=== PATIENT | male | born 1965 | race Caucasian/White ===

== ENCOUNTER 2022-11-29 03:02 | Outpatient (CLI) | payer MEDICAID, SELFPAY ==
[2022-11-29 07:34] LABS: Abs Immature Grans 0.02 10^3/uL (0.0-0.06); Absolute Basophil Count 0.03 10^3/uL (0.0-0.2); Absolute Eosinophil Count 0.48 10^3/uL (0.0-0.7); Absolute Lymphocyte Count 1.98 10^3/uL (1.2-3.4); Absolute Monocyte Count 0.88 10^3/uL (0.1-0.8); Absolute Neutrophil Count 4.85 10^3/uL (1.2-6.7); Basophils % 0.4; Eosinophils % 5.8; HCT 44.4 % (40.0-50.0); HGB 14.8 g/dL (13.5-17.5); Immature Grans % 0.2; MCH 30.2 pg (27.0-33.0); MCHC 33.3 % (32.0-36.0); MCV 91 fL (80-95); MPV 10.8 fL (8.0-11.0); Monocytes % 10.7; Neutrophils % 58.9; Platelet Count 206 10^3/uL (130-400); RDW 11.9 % (11.8-14.1); RDW-SD 39.5 fL; WBC 8.24 10^3/uL (4.4-10.8)
[2022-11-29 08:18] LABS: ALT 18 U/L (16-63); AST 14 U/L (15-37); Albumin 4.1 g/dL (3.4-5.0); Alkaline Phosphatase 61 U/L (46-116); Anion Gap 6.2 mmol/L (3-11); BUN 23 mg/dL (7-18); Bilirubin, Total 0.5 mg/dL (0.2-1.0); CO2 32.8 mmol/L (21.0-32.0); CREATININE 0.8 mg/dL (0.70-1.30); Calcium 9.1 mg/dL (8.5-10.1); Calculated LDL 128 mg/dL (<100); Chloride 102 mmol/L (98-107); Cholesterol 210 mg/dL (<200); Estimated GFR 103.22 (mL/min/1.73m2); Glucose 102 mg/dL (74-106); HDL Cholesterol 73 mg/dL (40-60); Potassium 3.9 mmol/L (3.5-5.1); Sodium 141 mmol/L (136-145); Total Protein 7.2 g/dL (6.4-8.2); Triglyceride 45 mg/dL (<150)
[2022-12-02 09:32] LABS: Insulin 7.9 uIU/mL (<29.0)
[2022-12-03 14:54] LABS: 25-Hydroxy D Total 42 ng/mL; 25-Hydroxy D2 <4.0 ng/mL; 25-Hydroxy D3 42 ng/mL
== END 2022-11-29 03:03 | disposition home or self-care (01) ==
LOC: LBO 03:02
PROVIDERS: PCP Acupuncturist; Visit Provider Acupuncturist
DX: Z00.00 Encounter for general adult medical examination without abnormal findings (principal)
CPT/HCPCS: 36415; 80053; 80061; 82306; 83525; 84154; 85025

== ENCOUNTER 2022-12-31 01:26 | Outpatient (CLI) | payer MEDICAID, SELFPAY ==
[2022-12-31 12:54] LABS: FREE T4 0.72 ng/dL (0.76-1.46); TSH 4.34 uIU/mL (0.36-3.74)
[2023-01-01 22:39] LABS: T3,Free 4.9 pg/mL (2.8-5.3)
[2023-01-01 22:55] LABS: T3, Total 137 ng/dL (97-169)
[2023-01-06 13:13] LABS: T3 (Triiodothyronine) Reverse 15 ng/dL (10-24)
== END 2022-12-31 01:27 | disposition home or self-care (01) ==
LOC: LOS 01:27
PROVIDERS: PCP Acupuncturist; Visit Provider Acupuncturist
DX: E03.9 Hypothyroidism, unspecified (principal)
CPT/HCPCS: 36415; 84439; 84443; 84480; 84481; 84482

== ENCOUNTER 2023-11-11 10:47 | Outpatient (CLI) | payer MEDICAID, SELFPAY ==
--- NOTE | 2023-11-11 09:30 | DI.RAD_ITS ---
Exam(s) XR WRIST LT COMP NAVICULAR EXAM: XR WRIST LT COMP NAVICULAR CLINICAL HISTORY: eval L thumb CMC and wrist pain. TECHNIQUE: 2D digital imaging was performed of the left wrist. Four images were obtained. Scaphoid , PA, oblique and lateral views were obtained. COMPARISON: No exams were available for comparison FINDINGS: BONES: No acute fracture is present. No bony destructive lesion is seen. JOINTS: The carpal bones are normally aligned. There is joint space narrowing and osteophyte seen at the 1st CMC joint. The joint spaces are otherwise well maintained. SOFT TISSUE: Normal. IMPRESSION: Mild degenerative changes seen at the 1st CMC joint. DATA REPOSITORY: RADIATION DOSE DELIVERED:
== END 2023-11-11 10:48 | disposition home or self-care (01) ==
LOC: DIORS 10:47
PROVIDERS: PCP Acupuncturist; Referring Provider Acupuncturist; Visit Provider Student in an Organized Health Care Education/Training Program
DX: M18.2 Bilateral post-traumatic osteoarthritis of first carpometacarpal joints (principal)
CPT/HCPCS: 73110

== ENCOUNTER 2024-07-13 08:44 | Outpatient (CLI) | payer MEDICAID, SELFPAY ==
[2024-07-13 09:11] LABS: Absolute Basophil Count 0.03 10^3/uL (0.0-0.2); Absolute Eosinophil Count 0.18 10^3/uL (0.0-0.7); Absolute Lymphocyte Count 1.41 10^3/uL (1.2-3.4); Absolute Monocyte Count 0.43 10^3/uL (0.1-0.8); Absolute Neutrophil Count 2.72 10^3/uL (1.2-6.7); Basophils % 0.6 %; Eosinophils % 3.8 %; HCT 41.5 % (40.0-50.0); HGB 14.4 g/dL (13.5-17.5); Lymphocytes % 29.6 %; MCH 30.5 pg (27.0-33.0); MCHC 34.7 % (32.0-36.0); MCV 88 fL (80-95); Platelet Count 213 10^3/uL (130-400); RBC 4.72 10^6/uL (4.36-5.78); RDW 12.3 % (11.8-14.1); RDW-SD 39.5 fL; WBC 4.77 10^3/uL (4.4-10.8)
[2024-07-13 09:27] LABS: ALT 22 U/L (16-63); AST 12 U/L (15-37); Albumin 3.8 g/dL (3.4-5.0); Alkaline Phosphatase 50 U/L (46-116); BUN 19 mg/dL (7-18); Bilirubin, Total 0.59 mg/dL (0.2-1.0); CREATININE 0.8 mg/dL (0.70-1.30); Calcium 8.8 mg/dL (8.5-10.1); Calculated LDL 125 mg/dL (<100); Chloride 104 mmol/L (98-107); Cholesterol 205 mg/dL (<200); Estimated GFR 102.58 (mL/min/1.73m2); Glucose 98 mg/dL (74-106); HDL Cholesterol 71 mg/dL (40-60); Potassium 3.8 mmol/L (3.5-5.1); Sodium 141 mmol/L (136-145); Total Protein 6.7 g/dL (6.4-8.2); Triglyceride 47 mg/dL (<150)
[2024-07-13 16:48] LABS: FREE T4 0.68 ng/dL (0.76-1.46); TSH 0.47 uIU/Ml (0.36-3.74)
[2024-07-15 08:13] LABS: T3,Free 4.5 pg/mL (2.8-5.3)
[2024-07-15 08:27] LABS: T3, Total 148 ng/dL (97-169)
[2024-07-15 09:00] LABS: Estradiol 26 pg/mL (<40)
[2024-07-18 09:37] LABS: T3 (Triiodothyronine) Reverse 12 ng/dL (10-24)
[2024-07-19 16:43] LABS: Dihydrotestosterone, Serum 90 pg/mL (112-955)
[2024-07-21 13:03] LABS: Testosterone, Free 11.9 ng/dL (3.87-14.7); Testosterone, Total 718 ng/dL (240-950)
[2024-07-23 11:45] LABS: Resin T3 Uptake 29.7 % (22.5-37.0)
[2024-07-23 11:46] LABS: Resin T3 Uptake Ratio 0.99 (0.75-1.23)
== END 2024-07-13 08:45 | disposition home or self-care (01) ==
LOC: LBO 08:44
PROVIDERS: PCP Acupuncturist; Visit Provider Acupuncturist
DX: M18.12 Unilateral primary osteoarthritis of first carpometacarpal joint, left hand (principal)
CPT/HCPCS: 36415; 80053; 80061; 84402; 84403; 84999; 82642; 82670; 83525; 84154; 84439; 84443; 84480; 84481; 84482; 85025

== ENCOUNTER 2024-09-14 00:38 | Outpatient (CLI) | payer MEDICAID, SELFPAY ==
--- NOTE | 2024-09-14 07:15 | DI.CT_ITS ---
Exam(s) CT ABDOMEN PELVIS W EXAM: CT ABDOMEN PELVIS W CLINICAL HISTORY: hernia vs lipoma in LLQ,llq abd mass,r19.04 TECHNIQUE: Imaging Protocol: Axial computed tomography images with coronal and sagittal reformatted images were created and reviewed. CONTRAST MATERIAL: Intravenous: Omnipaque 350 contrast volume:100 mL Oral: Yes COMPARISON: No exams were available for comparison FINDINGS: ABDOMEN: Lung Bases: Normal where visualized. Liver: Normal density. No measurable mass. Portal, Superior Mesenteric, and Splenic Veins: Unremarkable. Gallbladder and Biliary Tract: No radiodense calculus or dilation. Pancreas: Normal density, no abnormal calcifications or inflammatory process. Spleen: Normal. Adrenals: No masses seen. Kidneys: Normal size, contour and axis. No radiodense stones or obstructive uropathy. No masses seen. Abdominal Aorta: Abdominal portion non-dilated. Atherosclerotic calcification is present. Bowel: No obstruction or bowel wall thickening. There is a small hiatal hernia. No evidence of appen dicitis. Peritoneal Cavity: No ascites, collection or mesenteric inflammatory response. No free air. Lymph Nodes: Within normal limits. Bones: Within normal limits for the patient's age. Soft Tissues: There is mild infiltration of the subcutaneous tissues into the lower anterior abdomina l wall. No focal fluid collection is seen to suggest an abscess. There is a question of mild thicke ed of the skin at this area. The findings suggest a cellulitis. There is no evidence of a left in guinal hernia. PELVIS: Bladder: The urinary bladder is incompletely distended but grossly unremarkable. Reproductive Organs: Unremarkable as visualized. Lymph Nodes: Within normal limits. Bones: Within normal limits for the patient's age. IMPRESSION: 1. No acute abdominal or pelvic process. 2. Mild infiltration of the subcutaneous tissues in the lower anterior abdominal wall with mild skin thickening raising the question of cellulitis. No abscess is identified. RADIATION DOSE DELIVERED: 559.63mGy.cm Total DLP DATA REPOSITORY: All CT scans at this facility are submitted to the National Radiology Data Registry (NRDR) Dose Index Registry (DIR) with the [employer] (A[employer]). RADIATION OPTIMIZATION: All CT scans at this facility use at least one of these dose optimization te chniques: automated exposure control; mA and/or kV adjustment per patient size (includes targeted exa ms where dose is matched to clinical indication); or iterative reconstruction.
[2024-09-14] MEDS: Barium Sulfate 2% W/V-Berry Smoothie 450 ML BTL PO (12:02)
[2024-09-14] MEDS: Barium Sulfate 2% W/V-Creamy Vanilla Smoothie 450 ML BTL PO (12:03)
[2024-09-14] MEDS: Omnipaque 350 MG/ML 500 ML BTL-Imaging package 100 ML IJ (14:18)
[2024-09-14] MEDS: Normal Saline - Diluent 50 ML VIAL IJ (14:21)
== END 2024-09-14 00:58 ==
LOC: DI 00:38
PROVIDERS: PCP Acupuncturist; Visit Provider Surgery
DX: R19.04 Left lower quadrant abdominal swelling, mass and lump (principal)
CPT/HCPCS: 74177

== ENCOUNTER 2024-10-05 10:03 | Day surgery (SDC) | payer MEDICAID, SELFPAY ==
--- NOTE | 2024-10-04 17:21 | W.ANESPRE ---
General Info Date of Service Date Performed: 10/05/24 Height: 5 ft 9.5 in Weight: 107.955 kg Body Mass Index (BMI): 34.6 Surgical Procedure: Operation Date: 10/05/24 10:35 Proposed Procedure Side Surgeon p Colonoscopy/Gastroscopy Peggy Llamas DO Meds Allergies and Home Medications Allergies Allergy/AdvReac Type Severity Reaction Status Date / Time morphine AdvReac Intermediate vomiting Verified 10/05/24 10:25 Home Medication ?Medication ?Instructions ?Recorded levothyroxine 25 mcg capsule 25 mcg PO DAILY 11/30/22 liothyronine 5 mcg tablet 12.5 mcg PO DAILY 09/27/23 hydrochlorothiazide 12.5 mg capsule 12.5 mg PO DAILY 09/10/24 lysine 500 mg tablet (L-Lysine) 500 mg PO DAILY 09/10/24 saw palmetto 450 mg capsule 1,350 mg PO DAILY 09/10/24 Current Visit Medications: Current Medications Generic Name Dose Route Start Last Admin Trade Name Freq PRN Reason Stop Dose Admin IV Miscellaneous Supplies 1 each 10/05/24 06:00 Iv Access IV 10/05/24 23:59 DIRECTED DAVY Sodium Chloride 0 ml 10/05/24 06:00 Normal Saline Flush 10 Ml Syr IV 10/05/24 23:59 PRN PRN Sodium Chloride 0 ml 10/05/24 06:00 Normal Saline 10 Ml Vial IJ 10/05/24 23:59 DIRECTED PRN Sterile Water 0 ml 10/05/24 06:00 Water,Injection,Sterile 10 Ml Vial IJ 10/05/24 23:59 DIRECTED PRN PFSH Active Problems Active Problems: Problem Status Onset Code Chronic GERD Acute K21.9 Abdominal mass, left lower quadrant Acute R19.04 Abdominal hernia without obstruction and without gangrene Acute K46.9 Arthritis of carpometacarpal (CMC) joint of left thumb Acute M18.12 Pain of left thumb Acute M79.645 Medical History Medical History Deviated septum Osteoarthritis of hand Hernia Psoriasis Hypothyroidism HTN (hypertension) Prediabetes Sleep apnea Tubular adenoma of colon (~2018) Surgical History Surgical History History of appendectomy History of colonoscopy with polypectomy (~2018) History of Sohan fundoplication (~1999) Tobacco Smoking/Tobacco Use Status: Never Alcohol Alcohol Intake: never Substance Use Substance use: Never Substance use type: does not use Vital Signs and Lab Results Vital Signs Most Recent Vital Signs in EMR: Temp Pulse Resp BP Pulse Ox 36.5 C 68 16 148/90 H 97 10/05/24 10:06 10/05/24 10:06 10/05/24 10:06 10/05/24 10:06 10/05/24 10:06 Lab Results Blood Type / Crossmatch: No Data to Display Complete Blood Count: No Data to Display Complete Metabolic Panel: No Data to Display Liver Function Panel: No Data to Display Coagulation Panel: No Data to Display Cardiac Panel: No Data to Display Arterial Blood Gas: No Data to Display Venous Blood Gas: No Data to Display Pancreas Panel: No Data to Display Thyroid Panel: No Data to Display Infectious Disease: No Data to Display Blood Cultures: No Data to Display Toxicology Panel: No Data to Display Anesthesia Assessment and Plan Anesthesia History Personal History: No History of Anesthesia Complications Family History: No Family History of Anesthesia Complications Exercise Tolerance Exercise Tolerance: Metabolic Equivalents>4 Cardiac & Pulmonary Exam Cardiac Exam: Normal S1/S2 Heart Sounds Pulmonary Exam: Clear Bilateral Breath Sounds Implantable Cardiac Device Does patient have a Pacemaker or an ICD?: No Airway Exam Known Difficult Airway: No Mallampati Class: 3 Mouth Opening: Normal (> 3cm) Thyromental Distance: Greater than 3 cm Neck Range of Motion: Limited ROM Neck Circumference: Normal Teeth Condition: Normal Dentition and Removable Dentures/Plates Upper ASA Classification ASA Score: ASA 2 Emergency Case?: No NPO Status NPO Status: NPO Clears >2 hours, Solids >8 hours Anesthesia Plan Resuscitation Status: Full Code Anesthesia Technique: General Anesthesia Airway Planned: Natural Airway Monitors Used: Standard Monitors Preoperative Comments:: 59 yo male for colo/EGD. Sig PMHx: HTN (HCTZ, well controlled), PreDM, SHIELA, hypothyroid (on replacement), never smoker.
--- NOTE | 2024-10-04 21:27 | COLE_ITS ---
Date of service: 10/05/24 Time of Service: 13:00 Colonoscopy Report Date of procedure: 10/05/24 Pre-op diagnosis general: adenomatous polyps Post-op diagnosis procedure note: other (Adenomatous polyps and diverticula) Surgeon: Peggy Llamas Anesthesia Type: General:No Airway Complications: None Disposition: same day Prep: Miralax/Dulcolax Retraction Time: 14 Procedure Description: After informed consent was obtained, explaining risks of the procedure, including but not limits to: bleeding, infections, complications of anesthesia, perforations (which may require antibiotics and /or surgery and stay in the hospital), and abdominal pain/cramping. The patient was taken to the procedure room and placed in a left decubitous position. Monitors were applied and a time out was done. The patients name, date of , procedure, allergies to medications and metal in their body was reviewed. The patient was then sedated. Once sedated and comfortable a rectal exam was done. External exam was normal. Internal exam revealed a normal sphincter tone and no palpable masses. The prostate no palpable masses. The previously lubricated Olympus scope was then introduced (see RN notes for scope number) and retrofelexed. No internal hemorrhoids were identified. The s cope was then advanced to the cecum without difficulty. The TI and appendiceal orifice were identified. The scope was then slowly retracted over 14 minutes back into the rectum. Polyps: A pedunculated, .75cm polyp was found at 40 cm. This was removed with a cold biting snare. All of the specimen was retrieved. This will be sent to pathology. There is no bleeding noted from the polypectomy site. Diverticula: pt had a few amount of small mouthed diverticula in the sigmoid colon. There were no signs of active bleeding or infection. The mucosa is pink and healthy w/ a normal vascular pattern. The scope was removed, and the patient was woken up and taken back to Same day surgery in stable condition. The patient tolerated the procedure well and there were no immediate complicatio ns. Follow up: The patient should follow up in ~5 years, unless they develop changes in bowel habits or other new gastrointestinal complaints. [place] Bowel Prep Sher[place]ne Bowel Prep Right Colon: 2 Left Colon: 3 Transverse Colon: 3 Total Score: 8
--- NOTE | 2024-10-04 21:28 | ENDO_ITS ---
Date of service: 10/05/24 Time of Service: 13:00 Endoscopy Report DATE OF PROCEDURE: 10/31/24 PRE-OP DIAGNOSIS: GERD & s/p Sohan POST-OP DIAGNOSIS: same SURGEON: Peggy Llamas ANESTHESIA TYPE: General LMA/ETT ESTIMATED BLOOD LOSS: 1 PATHOLOGY: other COMPLICATIONS: None DISPOSITION: same day PROCEDURE DESCRIPTION: Informed consent was obtained from the pt; explaining the benefits and Risks: bleeding, infections, perforations {which could require surgery or antibiotics and prolonged hospital stay}, or ostomy, and complications of anaesthesia, rui aspiration). The patient was take to the procedure room and placed in a supine position. Monitors were applied and a time out was done. The patients name, date of , procedure type, allergies to medications and metal in their body was reviewed. A bite block was placed and the patient was sedated. Once sedated and comfortable an Olympus gastroscope (see RN notes for scope #) was advanced through the oropharynx which was grossly normal, and passed into the esophagus. The proximal and mid-esophagus were normal. The distal esophagus does not show any: dilation/strictures/varices/erosions or ulcers/bleeding noted. He has had a previous Sohan, which does alter the anatomy. The wrap is still intact. The scope was advanced into the stomach and through the pylorus and into the third portion of the duodenum. The duodenum was noted to be normal. Biopsies were done of the duodenal bulb.. The scope was retracted back into the stomach and biopsies were taken of the antrum. There were gastropathy/ ulcers/masses noted. There is maybe some mild gastritis in the distal one third of the stomach. He does have a few scattered polyps in the body of the fundus. 1 of these was biopsies for random evaluation with a cold forcep. the scope was retroflexed. The cardia and fundus were noted to be normal. There is no herniation of the wrap. The scope was retracted back into the esophagus and biopsies were done of the GE junction (in all 4 quadrants) and distal esophagus (2cm above the GE junction) to rule out Glasgow's. All specimens are retrieved and no bleeding was noted. The scope was removed and the patient was woken up and taken back to [facility] in stable condition.
--- NOTE | 2024-10-04 21:29 | PDOC.DSDIS_ITS ---
Date of service: 10/31/24 Discharge Plan Disposition Patient Disposition: Home Condition: Good Discharge Details Reason For Visit: egd & colo Attending Provider: Peggy Llamas Primary Care Provider: Simon Zazueta Home Meds and New Rx's Prescriptions: Continued lysine [L-Lysine] 500 mg tablet 500 mg PO DAILY saw palmetto 450 mg capsule 1,350 mg PO DAILY Rx Instructions: give with food (meal/snack) levothyroxine 25 mcg capsule 25 mcg PO DAILY Patient Comments: Pt reports takes 2.5 tabs in am and 2.5 tabs at 3:30 liothyronine 5 mcg tablet 12.5 mcg PO DAILY Patient Comments: Pt reports takes 2.5 tabs in am and 2.5 tabs at 3:30. hydrochlorothiazide 12.5 mg capsule 12.5 mg PO DAILY Discontinued polyethylene glycol 3350 17 gram/dose powder 238 g PO ONCE Qty: 238 0RF Rx Instructions: take per colonoscopy instructions bisacodyl [Dulcolax (bisacodyl)] 5 mg tablet,delayed release (DR/EC) 5 mg PO ONCE Qty: 4 0RF Rx Instructions: take per colonoscopy instructions Discharge Instructions Additional Instructions: [facility] Colonoscopy Post- Op Instructions Instructions for Everyone who is given Anesthesia: For your safety, please do the following for the next twenty-four (24) hours: *Do Not operate a motor vehicle (car, truck, motorcycle, etc.) *Do Not drink alcoholic beverages or use any recreational drugs for the first 24 hours or while taking pain medications. The medications in your body may have a reaction that can be dangerous. *Do Not make any important decisions or sign any important papers. Findings: wrap is intact mild gastritis colon polyp diverticula- minor lipoma Follow up: clinic [id number] 1. No lifting over 20 pounds or strenuous activity for the first 24 hours after your procedure. After 24 hours there are no restrictions on your activity but you may feel fatigued for a few days. 2. After you arrive home you may have a light meal and return to your normal diet as you can tolerate it without feeling sick to your stomach. 3. You may have a bloated, gaseous feeling in your belly (abdomen) after a colonoscopy. Passing gas and belching will help. Walking or lying down on your left side with your knees flexed may relieve the discomfort. Call the office at [phone] (Office) or [phone] (Hospital) right away if you notice any of the following: a.Vomiting of blood or ?coffee ground stools?. b.Rectal bleeding 1Tbsp, blood clots or continuous bleeding. c.Severe belly (abdominal) pain. d.A hard distended belly (abdomen) and an inability to pass gas. 4. Please don?t expect to have a normal BM (bowel movement) for 2-3 days after your procedure. 5. If there are questions regarding the findings of your procedure, please contact your doctor 6. If you are unable to contact your doctor with a problem, contact the hospital at [phone]. 7. Continue all your regular medications unless directed otherwise. I understand the above instructions and have no questions. Signature of Patient or Adult Escort Name of Responsible Adult Escort Signature of Nurse Date/Time Stand Alone Forms: Colonoscopy Post Instructions, Paulette Akins ([facility]) Activity:: seeabove Diet:: seeabove Discharge Orders Discharge Orders: Discharge Order (Routine); Ordered 10/05/24 Ordered By: Peggy Llamas DS: Diagnosis Discharge Diagnosis (1) Chronic GERD: Status: Acute (2) Abdominal mass, left lower quadrant: Status: Acute (3) Tubular adenoma of colon: Asessment and Plan: The patient is seen and examined after their colonoscopy.? The patient has been able to pass gas.? They are not having abdominal pain.? They have been able to tolerate liquids and a snack.? They do not have any nausea or vomiting.? They are not having any chest pain or shortness of breath.??? They are not having any rectal bleeding. Their vital signs have been stable-see nursing notes. We discussed findings during their colonoscopy, and any biopsies that were done/polyps that were removed. The patient will be sent a letter with any biopsy results, and when to repeat the colonoscopy.-see discharge instructions. Patient was given explicit instructions to follow-up regarding colonoscopy-refer to discharge instructions.? We reviewed resumption of medications. Patient verbalized understanding and discharged in stable and satisfactory condition- See nursing notes. (4) Diverticula of colon: Status: Acute
[2024-10-05 10:06] VITALS: BP 148/90; PULSE 68; RESP 16; TEMP 36.5; O2SAT 97
[2024-10-05 10:27] VITALS: BMI 34.6
[2024-10-05] MEDS: Normal Saline Flush 10 ML SYR IV (10:38)
--- NOTE | 2024-10-05 11:15 | BOWEL_PTH ---
PATIENT: Shadi Luke LOC: [facility] U#:[id number] AGE/SX: 59/M ROOM: RE10/05/[address]: Peggy Llamas : 1965 BED: DIS: 10/05/2024 SPEC #: [id number] RECD: 10/05/24 13:20 STATUS: REUBEN RE #: [id number] HEATHER: 10/05/24 11:[address]: Peggy Llamas DEPT: Surgical Specimen RECD BY: Harini Morrison ENTERED: 10/05/24 13:21 SP TYPE: Bowel OTHR DR: Ricardo Zazueta Tissues: 1 - BIOPSY BOWEL 2 - STOMACH BIOPSY 3 - STOMACH BIOPSY 4 - ESOPHAGUS BIOPSY 5 - ESOPHAGUS BIOPSY 6 - STOMACH BIOPSY 7 - BIOPSY BOWEL Procedures: GROSS AND MICRO LEVEL 4 Comments: [id number]
[2024-10-05 11:52] VITALS: BP 125/80; PULSE 59; RESP 14; TEMP 36; O2SAT 96
--- NOTE | 2024-10-05 12:06 | W.ANESPOSTOP ---
Postoperative Evaluation Date, Time and Location Date Performed: 10/05/24 Time Performed: 12:06 Patient Location: Day Surgery Unit Vital Signs Most Recent Imported Vital Signs: Most Recent Vital Signs Temp Pulse Resp BP Pulse Ox 36 C L 59 L 14 125/80 96 10/05/24 11:52 10/05/24 11:52 10/05/24 11:52 10/05/24 11:52 10/05/24 11:52 Pain Score Most Recent Pain Score: Most Recent Pain Score Pain Level 0 10/05/24 11:52 Assessment Mental Status: Awake (Alert & Oriented to Patient Baseline) Airway and Respiratory Function: Patent airway with normal (patient baseline) respiratory exam Cardiovascular Function: Hemodynamically Stable Hydration Status: Adequately Hydrated Nausea & Vomiting: No Nausea or Vomiting Pain: Pt. Denies Any Pain Peripheral Nerve Block: Patient did not receive a nerve block
--- NOTE | 2024-10-05 12:20 | NUR.NOTE ---
Pt's ride ([employer]) called x3 (1 call, 2 voicemails left) with notification that he should come to [facility] post-op to discuss discharge instructions and transport pt home. Pt was made aware pre-op that ride should be/remain on campus, pt reported that pt could not do that as he works from home but would come when called. -BR
[2024-10-05 12:25] VITALS: BP 130/81; PULSE 56; RESP 15; TEMP 36.3; O2SAT 98
== END 2024-10-05 12:55 | disposition home or self-care (01) ==
LOC: SUR 10:05
PROVIDERS: PCP Acupuncturist; Visit Provider Surgery
PROC: (CPT 45385; principal; 2024-10-05 10:30)
DX: K21.9 Gastro-esophageal reflux disease without esophagitis (principal); K31.7 Polyp of stomach and duodenum; K57.30 Diverticulosis of large intestine without perforation or abscess without bleeding; Z12.11 Encounter for screening for malignant neoplasm of colon; Z98.890 Other specified postprocedural states; K63.5 Polyp of colon; K31.9 Disease of stomach and duodenum, unspecified; K22.89 Other specified disease of esophagus
CPT/HCPCS: 45385; 43239; 88305; J2405; J2704

== ENCOUNTER 2024-11-06 06:29 | Day surgery (SDC) | payer MEDICAID, SELFPAY ==
--- NOTE | 2024-11-05 12:49 | W.PM.HP.N ---
Date of service: 11/06/24 Time of Service: 07:32 Assessment and Plan Assessment and plan (1) Chronic GERD: Status: Acute (2) Diverticula of colon: Status: Acute (3) Lipoma of abdominal wall: Status: Acute (4) HTN (hypertension): (5) Prediabetes: (6) Hypothyroidism: (7) Deviated septum: (8) Sleep apnea: History of Present Illness Narrative: Patient is here today for lipoma removal?? ? They are not experiencing any fever or chills.? They deny any productive cough or upper respiratory tract infection signs or symptoms.? They are not having abdominal pain, or nausea and vomiting.? They have not had any changes in medications, past medical history or past surgical history since previously being seen in the office. They have not had any accidents or have been in the ER since the clinic pre-operative evaluation. ??I reviewed the procedure with the patient today, including risks and benefits of the procedure, and what they could expect at home for recovery.? All questions are answered to the patient?s satisfaction today, and they are stable to proceed with the proposed procedure. site is marked Pt has a 6x8cm in LLQ and would liek removed. Informed consent was obtained prior to beginning the procedure. The area was marked and doubled checked/ID?ed with the pt. The risks of lesion removal include but are not limited to: bleeding, infection, scarring, reoccurrence, and the need for removal of more tissue, and complications of anesthesia. Review of Systems All systems reviewed & are unremarkable except as noted in HPI and below PFSH All Active Problems Lipoma of abdominal wall (Acute) Diverticula of colon (Acute) Chronic GERD (Acute) Arthritis of carpometacarpal (CMC) joint of left thumb (Acute) POCUS INJECTION 11/11/23 Pain of left thumb (Acute) Medical History Deviated septum Osteoarthritis of hand Hernia Psoriasis Hypothyroidism HTN (hypertension) Prediabetes Sleep apnea Tubular adenoma of colon (~2019) Surgical History History of esophagogastroduodenoscopy (~09/2024) History of appendectomy History of colonoscopy with polypectomy (~2023) History of Sohan fundoplication (~1999) Social History Smoking/Tobacco Use Status: Never Smoking risk assessment performed?: Yes Alcohol Intake: never Drug use: Never Substance use type: does not use Housing: house Do you feel safe at home: Yes Do you feel safe in your relationship?: Yes Meds Allergies and Home Medications Allergies Allergy/AdvReac Type Severity Reaction Status Date / Time morphine AdvReac Intermediate vomiting Verified 11/06/24 06:34 Home Medications ?Medication ?Instructions ?Recorded ?Confirmed ?Type levothyroxine 25 mcg capsule 25 mcg PO DAILY 11/30/22 11/06/24 History liothyronine 5 mcg tablet 12.5 mcg PO DAILY 09/27/23 11/06/24 History hydrochlorothiazide 12.5 mg capsule 12.5 mg PO DAILY 09/10/24 11/06/24 History lysine 500 mg tablet (L-Lysine) 500 mg PO DAILY 09/10/24 11/06/24 History saw palmetto 450 mg capsule 1,350 mg PO DAILY 09/10/24 11/05/24 History Exam Narrative Exam Narrative: PHYSICAL EXAM GENERAL APPEARANCE: Alert, healthy appearance, oriented, x 3,? in no acute distress HYDRATION: Well hydrated HEAD, EYES, EARS, NECK, THROAT: Head is normocephalic, pupils equal, round, reactive to light and accommodation, ocular movement intact, sclera clear and no jaundice. ?Dentition intact. LUNGS: normal respiration/normal chest excursion. ?Clear to auscultation bilaterally. ?No wheeze. ?HEART: Regular rate and rhythm. no murmurs ABDOMEN: soft and non-tender to palpation.? Normal bowel sounds.? Time Spent Time spent with Patient: <40 minutes Time was spent: preparing to see the patient(eg.review tests), obtaining and/or reviewing separately otained hiistory, ordering medications,tests, procedures, referring, communicating with other health home health aide caregiver, indepentently interpreting results, counseling the patient, care coordination and other
--- NOTE | 2024-11-05 19:23 | W.PM.DSUDISC ---
Date of service: 11/06/24 Discharge Plan Disposition Patient Disposition: Home Condition: Good Discharge Details Reason For Visit: lipoma removal Attending Provider: Peggy Llamas Primary Care Provider: Simon Zazueta Home Meds and New Rx's Prescriptions: No Action lysine [L-Lysine] 500 mg tablet 500 mg PO DAILY saw palmetto 450 mg capsule 1,350 mg PO DAILY Rx Instructions: give with food (meal/snack) levothyroxine 25 mcg capsule 25 mcg PO DAILY Patient Comments: Pt reports takes 2.5 tabs in am and 2.5 tabs at 3:30 liothyronine 5 mcg tablet 12.5 mcg PO DAILY Patient Comments: Pt reports takes 2.5 tabs in am and 2.5 tabs at 3:30. hydrochlorothiazide 12.5 mg capsule 12.5 mg PO DAILY Discharge Instructions Additional Instructions: Wound Care Instruction Pain Control Use ice!? Ice keeps the swelling down and swelling is what causes pain.? Never apply ice directly to the skin.? Wrap it in a towel or cloth.? Apply ice 20 minutes on and 20 minutes off for pain control.? Use as needed. Take Tylenol 500 mg by mouth with food every 4 hours as needed for pain. Or ibuprofen 600 mg by mouth with food every 6 hours as needed for pain.? Do not take Tylenol if you have a history of heavy drinking, hepatitis C or liver problems.? Do not take ibuprofen if you have a history of stomach ulcers/problems, bleeding problem or kidney issues. ? Always wash your hands before touching your incision. ? Keep the incision clean, dry, and out of water, keep the incision out of water. ? Do not to pick at the scabs. Scabs help protect the wound. ? You can take a shower in 24 hours and wash the incision with soap and water. Pat dry/don?t scrub. It?s OK to wash around the incision. But don?t spray water directly on it. ? Pat stitches dry if they get wet. Don't rub. ? Check the incision site daily for pain, redness, drainage, swelling, or separation of the incision edges. ? Make sure any clothing that touches the incision is loose-fitting. This will prevent rubbing. As your incision heals, the skin may appear pink or red. It may also feel slightly bumpy or raised. This is called a healing ridge. Over time, the color should fade and the raised skin will become less noticeable. When to seek medical care Call your healthcare provider right away if you have any of these: ? More pain, redness, swelling, bleeding, or foul-smelling discharge around the incision area ? Fever of 101?F (38.3?C) or higher, or as directed by your child's healthcare provider ? Shaking chills ? Vomiting or nausea that doesn?t go away ? Numbness, coldness, or tingling around the incision area, or changes in skin color ? Opening of the sutures or wound -Stitches or jason that come apart or fall out or surgical tape falls off before 7 days, or as directed by your healthcare provider ?[facility]: [phone] F/u for sutures removal 11/16 at 9am at [facility] Forms: Anesthesia Discharge InstNii, Paulette Akins (DSU) Activity:: see above Remove Dressings/Wound Care:: 24 hours Shower/Bathe:: 24 hours Diet:: As Tolerated Discharge Orders Discharge Orders: Discharge Order (Routine); Ordered 11/05/24 Ordered By: Peggy Llamas DS: Diagnosis Discharge Diagnosis (1) Chronic GERD: Status: Acute (2) Diverticula of colon: Status: Acute (3) Lipoma of abdominal wall: Status: Acute Asessment and Plan: The patient is doing well post-op from their [] surgery.? They are having no nausea or vomiting. They are tolerating liquids and a snack. The pt is not having any chest pain or SOB.? Their pain is adequately controlled. They have been able to urinate.? ?HEENT:? no eye pain/drainage/redness/swelling. Mild sore throat ?Cardio- NSR, no chest pain, BP stable- see VS record ?Pulm: no sob or productive cough. No hemoptysis ?Incision- dressing is c/d/i w/ no excessive bleeding or drainage ?I discussed with the patient the findings at the time of surgery and the patient?s progress. ?We reviewed expectations at home; what the patient could expect for recovery time, and in the post-operative period.? We discussed the importance of walking to avoid blood clots and pneumonia.? We discussed and reviewed the patient's post-operative wound care and dressing needs.?? We reviewed their step-ramey pain management plan, Rx called to the pharmacy of their choice.? We reviewed activity and limitations-see discharge instructions. We reviewed warning signs, and when to seek medical attention- see d/c instructions.?? Patient was given a postoperative follow-up appointment. Patient verbalized understanding of their postoperative instructions, how do to take care of themselves and their incision, and the pain management plan. Please see discharge instructions.? (4) HTN (hypertension): (5) Prediabetes: (6) Hypothyroidism: (7) Deviated septum: (8) Sleep apnea:
[2024-11-06 06:42] VITALS: BP 139/87; PULSE 59; RESP 16; TEMP 36.5; O2SAT 99
[2024-11-06] MEDS: Acetaminophen 500 MG TAB 1000 MG PO (06:47)
[2024-11-06] MEDS: Gabapentin 300 MG CAP 600 MG PO (06:47)
[2024-11-06] MEDS: Normal Saline Flush 10 ML SYR IV (07:07)
--- NOTE | 2024-11-06 07:09 | W.ANESPRE ---
General Info Date of Service Date Performed: 11/06/24 Height: 5 ft 9.5 in Weight: 111.6 kg Body Mass Index (BMI): 35.8 Surgical Procedure: Operation Date: 11/06/24 07:40 Proposed Procedure Side Surgeon p Incision & Removal Abdominal Lipoma, LLQ Left Peggy Llamas, DO Actual Procedure Side Surgeon p Incision & Removal Abdominal Lipoma, LLQ Left Peggy Vo Pabloiber, DO Pre-Op Diagnosis Post-Op Diagnosis Lipoma of abdominal wall Meds Allergies and Home Medications Allergies Allergy/AdvReac Type Severity Reaction Status Date / Time morphine AdvReac Intermediate vomiting Verified 11/06/24 06:34 Home Medication ?Medication ?Instructions ?Recorded levothyroxine 25 mcg capsule 25 mcg PO DAILY 11/30/22 liothyronine 5 mcg tablet 12.5 mcg PO DAILY 09/27/23 hydrochlorothiazide 12.5 mg capsule 12.5 mg PO DAILY 09/10/24 lysine 500 mg tablet (L-Lysine) 500 mg PO DAILY 09/10/24 saw palmetto 450 mg capsule 1,350 mg PO DAILY 09/10/24 Current Visit Medications: Current Medications Generic Name Dose Route Start Last Admin Trade Name Freq PRN Reason Stop Dose Admin Acetaminophen 1,000 mg 11/06/24 06:00 11/06/24 06:47 Acetaminophen 500 Mg Tab PO 11/06/24 23:59 1,000 mg PREOP DAVY Administration Gabapentin 600 mg 11/06/24 06:00 11/06/24 06:47 Gabapentin 300 Mg Cap PO 11/06/24 23:59 600 mg PREOP DAVY Administration Ondansetron HCl 4 mg/ Sodium 52 mls @ 200 mls/hr 11/05/24 12:48 Chloride IVPB 12/05/24 12:47 Q6H PRN PRN IV Miscellaneous Supplies 1 each 11/06/24 06:00 Iv Access IV 11/06/24 23:59 DIRECTED DAVY Morphine Sulfate 2 mg 11/05/24 12:48 Morphine 4 Mg/Ml Syr IVP 12/05/24 12:47 Q1H PRN PRN Sodium Chloride 0 ml 11/06/24 06:00 11/06/24 07:07 Normal Saline Flush 10 Ml Syr IV 11/06/24 23:59 10 ml PRN PRN Administration Sodium Chloride 0 ml 11/06/24 06:00 Normal Saline 10 Ml Vial IJ 11/06/24 23:59 DIRECTED PRN Sterile Water 0 ml 11/06/24 06:00 Water,Injection,Sterile 10 Ml Vial IJ 11/06/24 23:59 DIRECTED PRN Tramadol HCl 50 mg 11/05/24 12:48 Tramadol 50 Mg Tab PO 12/05/24 12:47 Q6H PRN PRN Pain PFSH Active Problems Active Problems: Problem Status Onset Code Lipoma of abdominal wall Acute D17.1 Diverticula of colon Acute K57.30 Chronic GERD Acute K21.9 Arthritis of carpometacarpal (CMC) joint of left thumb Acute M18.12 Pain of left thumb Acute M79.645 Medical History Medical History Deviated septum Osteoarthritis of hand Hernia Psoriasis Hypothyroidism HTN (hypertension) Prediabetes Sleep apnea Tubular adenoma of colon (~2018) Surgical History Surgical History History of esophagogastroduodenoscopy (~09/2024) History of appendectomy History of colonoscopy with polypectomy (~2023) History of Sohan fundoplication (~1999) Tobacco Smoking/Tobacco Use Status: Never Alcohol Alcohol Intake: never Substance Use Substance use: Never Substance use type: does not use Vital Signs and Lab Results Vital Signs Most Recent Vital Signs in EMR: Most Recent Vital Signs Temp Pulse Resp BP Pulse Ox 36.5 C 59 L 16 139/87 99 11/06/24 06:42 11/06/24 06:42 11/06/24 06:42 11/06/24 06:42 11/06/24 06:42 Lab Results Blood Type / Crossmatch: No Data to Display Complete Blood Count: No Data to Display Complete Metabolic Panel: No Data to Display Liver Function Panel: No Data to Display Coagulation Panel: No Data to Display Cardiac Panel: No Data to Display Arterial Blood Gas: No Data to Display Venous Blood Gas: No Data to Display Pancreas Panel: No Data to Display Thyroid Panel: No Data to Display Infectious Disease: No Data to Display Blood Cultures: No Data to Display Toxicology Panel: No Data to Display Anesthesia Assessment and Plan Anesthesia History Personal History: No History of Anesthesia Complications Family History: No Family History of Anesthesia Complications Exercise Tolerance Exercise Tolerance: Metabolic Equivalents>4 Pertinent Negatives Pertinent Negatives: No Symptoms of GERD Cardiac & Pulmonary Exam Cardiac Exam: Normal S1/S2 Heart Sounds Pulmonary Exam: Clear Bilateral Breath Sounds Implantable Cardiac Device Does patient have a Pacemaker or an ICD?: No Airway Exam Known Difficult Airway: No Mallampati Class: 1 Mouth Opening: Normal (> 3cm) Thyromental Distance: Greater than 3 cm Neck Range of Motion: Limited ROM Neck Circumference: Normal Teeth Condition: Normal Dentition ASA Classification ASA Score: ASA 2 Emergency Case?: No NPO Status NPO Status: NPO Clears >2 hours, Solids >8 hours Anesthesia Plan Resuscitation Status: Full Code Anesthesia Technique: General Anesthesia Airway Planned: Natural Airway Monitors Used: Standard Monitors
[2024-11-06 07:11] VITALS: BMI 35.8
[2024-11-06] MEDS: Lactated Ringers 1,000 ML 80 ML IV (07:21)
[2024-11-06] MEDS: Lidocaine 1% Pres-Free 30 ML VIAL (07:48)
[2024-11-06] MEDS: Bupivacaine LIPOSOME/PF 133 MG/10 ML VIAL IJ (07:48)
[2024-11-06 08:17] VITALS: BP 107/66; PULSE 58; RESP 16; TEMP 36.3; O2SAT 93
--- NOTE | 2024-11-06 08:30 | ROE_ITS ---
Operative Note Operative Note PRE-OP DIAGNOSIS: lipoma POST-OP DIAGNOSIS: same SURGEON: Peggy Llamas ICU RN: Josefa Pinzon ANESTHESIA TYPE: Local By Surgeon and MAC Refer to Anesthesia Record ESTIMATED BLOOD LOSS: 3 PATHOLOGY: none sent COMPLICATIONS: None Patient was transported to: PACU Patient's condition: stable Procedure Description: ASSESSMENT: The lesion is 8x4_Cm in size. Differential diagnosis includes:_lipoma Location: LLQ of abdomen Procedural Sedation 30cc marciane and 10cc experel Technique excision of lipma Patient appears well. Vitals are normal. The patient has no allergies to lidocaine or suture material. The patient not on any blood thinners. The pt has no history of keloids or problems with healing in the past. Skin: see HPI Informed consent was obtained prior to beginning the procedure. The area was marked and doubled checked/ID?ed with the pt. PAUSE for the CAUSE completed. The risks of lesion removal include but are not limited to: bleeding, infection, scarring, reoccurrence, and the need for removal of more tissue, and complications of anesthesia. After informed consent was obtained, using Chloroprep for cleansing and 1% Buffered Lidocaine for anesthetic; using sterile technique, PROCEDURE:_excision of lipma was performed. The lesion is 48cm in size. The incision was 4_Cm long. The incision is closed w/ interrupted sutures of 3-0 prolene dressing is applied, and wound care instructions provided. The procedure was well tolerated without complications. Plan: The patient will follow up in 10 days for suture removal and review of pathology. If there is any bleeding/redness/drainage/swelling/pain or tenderness- call the clinic. Patient was given instructions in wound care, activity, warning signs, appointment for follow up. If the patient has any questions or concerns, should call our clinic or go to ER/urgent care after hours. Patient expressed understanding in directions for care and was given a written copy of instructions. Rx=see [employer], if appropriate Pt tolerated the procedure well without complications Patient was given instruction in activity restrictions, wound care and dressing changes. Medication usage, diet, warning signs to look for (and what to do if they occur), and an appointment for follow-up. Date of Procedure: 11/06/24
[2024-11-06 08:45] VITALS: BP 105/71; PULSE 50; RESP 16; TEMP 36.2; O2SAT 99
--- NOTE | 2024-11-06 08:47 | W.ANESPOSTOP ---
Postoperative Evaluation Date, Time and Location Date Performed: 11/06/24 Time Performed: 08:47 Patient Location: Day Surgery Unit Vital Signs Most Recent Imported Vital Signs: Most Recent Vital Signs Temp Pulse Resp BP Pulse Ox 36.3 C L 58 L 16 107/66 93 11/06/24 08:17 11/06/24 08:17 11/06/24 08:17 11/06/24 08:17 11/06/24 08:17 Pain Score Most Recent Pain Score: Most Recent Pain Score Pain Level 0 11/06/24 08:17 Assessment Mental Status: Awake (Alert & Oriented to Patient Baseline) Airway and Respiratory Function: Patent airway with normal (patient baseline) respiratory exam Cardiovascular Function: Hemodynamically Stable Hydration Status: Adequately Hydrated Nausea & Vomiting: No Nausea or Vomiting Pain: Pt. Denies Any Pain Peripheral Nerve Block: Patient did not receive a nerve block
== END 2024-11-06 09:40 | disposition home or self-care (01) ==
LOC: SUR 06:29
PROVIDERS: PCP Acupuncturist; Visit Provider Surgery
PROC: (CPT 11406; principal; 2024-11-06 07:30)
DX: D17.1 Benign lipomatous neoplasm of skin and subcutaneous tissue of trunk; K21.9 Gastro-esophageal reflux disease without esophagitis; I10 Essential (primary) hypertension; E03.9 Hypothyroidism, unspecified; R73.03 Prediabetes
CPT/HCPCS: 11406; J0666; J2250; J2405; J2704; J3010

== ENCOUNTER 2025-04-08 13:00 | Outpatient (CLI) | payer MEDICAID, SELFPAY ==
[2025-04-08 11:21] LABS: Abs Immature Grans 0.01 10^3/uL (0.0-0.06); Absolute Basophil Count 0.02 10^3/uL (0.0-0.2); Absolute Eosinophil Count 0.14 10^3/uL (0.0-0.7); Absolute Monocyte Count 0.44 10^3/uL (0.1-0.8); Absolute Neutrophil Count 3.06 10^3/uL (1.2-6.7); Basophils % 0.4 %; Eosinophils % 2.8 %; HCT 42.9 % (40.0-50.0); HGB 14.6 g/dL (13.5-17.5); Immature Grans % 0.2 %; Lymphocytes % 26.2 %; MCV 88 fL (80-95); MPV 11.1 fL (8.0-11.0); Monocytes % 8.9 %; Neutrophils % 61.5 %; Platelet Count 214 10^3/uL (130-400); RBC 4.86 10^6/uL (4.36-5.78); RDW 11.9 % (11.8-14.1); RDW-SD 38.3 fL; WBC 4.97 10^3/uL (4.4-10.8)
[2025-04-08 11:44] LABS: ALT 17 U/L (16-63); AST 15 U/L (15-37); Albumin 4.1 g/dL (3.4-5.0); Alkaline Phosphatase 63 U/L (46-116); Anion Gap 6.4 mmol/L (3-11); BUN 23 mg/dL (7-18); Bilirubin, Direct 0.1 mg/dL (0.0-0.2); Bilirubin, Total 0.6 mg/dL (0.2-1.0); CO2 31.6 mmol/L (21.0-32.0); CREATININE 0.8 mg/dL (0.70-1.30); Calcium 9.1 mg/dL (8.5-10.1); Chloride 104 mmol/L (98-107); Estimated GFR 101.95 (mL/min/1.73m2); Glucose 97 mg/dL (74-106); Potassium 3.9 mmol/L (3.5-5.1); Sodium 142 mmol/L (136-145); Total Protein 7.2 g/dL (6.4-8.2)
[2025-04-08 11:57] LABS: Calculated LDL 126 mg/dL (<100); Cholesterol 196 mg/dL (<200); HDL Cholesterol 63 mg/dL (>or=40); Triglyceride 35 mg/dL (<150)
[2025-04-08 18:51] LABS: Hepatitis B Surface Ag Negative (Negative)
[2025-04-08 19:04] LABS: HBs Antibody, Quant 40.3 mIU/mL (See Note); Hepatitis B Surface Ab Positive (See Note)
[2025-04-08 19:20] LABS: Hepatitis C Ab w Rflx HCV PCR Negative (Negative)
[2025-04-08 19:44] LABS: Hep B Core Antibody Negative (Negative)
[2025-04-10 12:43] LABS: TB Interpretation Negative (Negative); TB1 Ag minus Nil 0.01 IU/mL
== END 2025-04-08 13:01 | disposition home or self-care (01) ==
LOC: LBO 13:02
PROVIDERS: PCP Acupuncturist; Visit Provider Physician Assistant Medical
DX: Z79.899 Other long term (current) drug therapy (principal)
CPT/HCPCS: 36415; 80048; 80061; 80076; 86704; 86706; 86803; 87340; 85025; 86480